=== PATIENT | female | born 1980 | race African-American/Black ===

== ENCOUNTER 2024-06-09 18:39 | Emergency (ER) | payer OTHER, MEDICAID ==
[~2024-06-09] VITALS: Ht 160 cm; Wt 85.0 kg
[~2024-06-09 18:39] MED LIST: CLON0.1T; METF-370; PALI6TAB; PSYCH MED
[2024-06-09] MEDS ORDERED: PALI6TAB PO (19:10)
[2024-06-09] MEDS ORDERED: METF-489 PO (19:10)
[2024-06-09 20:21] VITALS: BP 148/86; PULSE 77; RESP 18; TEMP 97.9; O2SAT 99
[2024-06-09] MEDS: OLANZapine 5 MG TAB PO ONE (20:24)
[2024-06-09] MEDS: metFORMIN HYDROCHLORIDE 500 MG TAB PO ONE (20:24)
[2024-06-09] MEDS ORDERED: HYDR-3682 PO (20:41)
[2024-06-09] MEDS ORDERED: TOPI25TA84 PO (20:41)
== END 2024-06-09 20:51 | disposition home or self-care (01) ==
LOC: EDBD 18:39 → ER 18:39 → EDUNIT# 18:39 → ER 20:51
DX: F20.9 Schizophrenia, unspecified (principal); E11.9 Type 2 diabetes mellitus without complications; I10 Essential (primary) hypertension

== ENCOUNTER 2024-08-31 09:35 | Emergency (ER) | payer MEDICAID, OTHER ==
[~2024-08-31] VITALS: Ht 157.5 cm; Wt 87.2 kg
[~2024-08-31 09:35] MED LIST changes: +HYDR-3682 PO; +METF-489 PO; +PALI6TAB PO; +TOPI25TA84 PO
[2024-08-31 11:15] VITALS: BP 124/70; PULSE 77; RESP 20; TEMP 98.2; O2SAT 100
--- NOTE | 2024-08-31 12:01 | ED.PDOC ---
Musculoskeletal HPI Comments A 44 YEAR OLD FEMALE PRESENTS TO THE ED WITH COMPLAINT OF BILATERAL KNEE PAIN. PATIENT STATES SHE ACCIDENTALLY TWISTED HER RIGHT LEG CAUSING HER TO FALL AND HIT HER BILATERAL KNEES ON THE GROUND 1 WEEK AGO. PATIENT REPORTS SHE IS NOW EXPERIENCING BILATERAL KNEE PAIN. PATIENT IS ABLE TO WALK AND BEAR WEIGHT WITH A STABLE GAIT. PATIENT IS ALSO REQUESTING A TEST SHE NOTES SHE MISSED HER MENSTRUAL PERIOD RECENTLY. PATIENT DENIES HEAD INJURY, NECK INJURY, LOC, FEVER, CHILLS, SHORTNESS OF BREATH, CHEST PAIN, ABDOMINAL PAIN, NAUSEA, VOMITING, HEADACHE, OR OTHER COMPLAINTS. NO OTHER SYMPTOMS OR MODIFYING FACTORS AT THIS TIME. PATIENT IS ALERT, ORIENTED X 4, AND HAS STEADY GAIT. Chief Complaint: Lower Extremity Time Seen by MD: 10:02 Primary Care Provider: RACHAEL Reviewed Notes: Nurses Notes, Medications, Allergies Allergies: Coded Allergies: NO KNOWN ALLERGIES (Unverified , 08/28/11) Home Meds Active Scripts Ibuprofen (Ibuprofen) 800 Mg Tab, 1 TAB PO TID, #30 TAB Prov:SENA CHOI 08/31/24 Hydroxyzine Hcl (Hydroxyzine Hcl) 25 Mg Tab, 1 TAB PO TID, #90 TAB 2 Refills Prov:APOLINAR ORELLANA MD 06/09/24 Topiramate (Topiramate) 25 Mg Tab, 1 TAB PO TID, #90 TAB 1 Refill Prov:APOLINAR ORELLANA MD 06/09/24 Paliperidone (Invega) 6 Mg Tab, 1 TAB PO DAILY, #30 TAB 2 Refills Prov:APOLINAR ORELLANA MD 06/09/24 Metformin Hydrochloride (METFORMIN HCL ER) 500 Mg Tab, 1 TAB PO DAILY, #90 TAB 1 Refill Prov:APOLINAR ORELLANA MD 06/09/24 Reported Medications Paliperidone (Invega) 6 Mg Tab 08/28/11 [Psych Med] No Conflict Check 08/28/11 Metformin Hydrochloride (Metformin Hcl) 500 Mg Tab 08/28/11 Clonidine Hydrochloride (Clonidine Hcl) 0.1 Mg Tab 08/28/11 Information Source: Patient Mode of Arrival: Ambulatory Location: Bilateral Extremity Location: Knee Timing: Days Prehospital treatment: None Severity: Moderate Able to Move Extremity: Yes Bear Weight: Fully Pain: Moderate Mechanism: Twisting Circumstances: Fall Onset of Symptoms: After Trauma Symptoms: Pain DVT Risk Factors: NONE Last Tetanus: Unknown Associated signs and symptoms: Knee pain Past Medical History PAST MEDICAL HISTORY: DM, HTN, Schizophrenia Surgical History: Denies all surgeries [employer] RO[employer] 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 History Family History Family History: No family hx of DM, No family hx of HTN Social History Smoker: Non-Smoker Alcohol: Denies ETOH Use Drugs: Denies Drug Use Lives In: Home Constitutional: denies: chills, diaphoresis, fatigue, fever, malaise, sweats, weakness, others EENTM: denies: blurred vision, double vision, ear bleeding, ear discharge, ear drainage, ear pain, ear ringing, eye pain, eye redness, hearing loss, mouth pain, mouth swelling, nasal discharge, nose bleeding, nose congestion, nose pain, photophobia, tearing, throat pain, throat swelling, voice changes, others Respiratory: denies: cough, hemoptysis, orthopnea, SOB at rest, shortness of breath, SOB with excertion, stridor, wheezing, others Cardiovascular: denies: chest pain, dizzy spells, diaphoresis, Dyspnea on exertion, edema, irregular heart beat, left arm pain, lightheadedness, palpitations, PND, syncope, others Gastrointestinal: denies: abdomen distended, abdominal pain, blood streaked bowels, constipated, diarrhea, dysphagia, difficulty swallowing, hematemesis, melena, nausea, poor appetite, poor fluid intake, rectal bleeding, rectal pain, vomiting, others Genitourinary: denies: abnormal vagina bleeding, burning, dyspareunia, dysuria, flank pain, frequency, hematuria, incontinence, pain, , vagina discharge, urgency, others Neurological: denies: dizziness, fainting, headache, left sided numbness, left sided weakness, numbness, paresthesia, pre-existing deficit, right sided numbness, right sided weakness, seizure, speech problems, tingling, tremors, weakness, others Musculoskeletal: reports: joint pain, others (BILATERAL KNEE PAIN); denies: back pain, gout, joint swelling, muscle pain, muscle stiffness, neck pain Integumetry: denies: bruises, change in color, change in hair/nails, dryness, laceration, lesions, lumps, rash, wounds, others Allergic/Immunocompromised: denies: Difficulty Healing, Frequent Infections, Hives, Itching, others Hematologic/Lymphatic: denies: anemia, blood clots, easy bleeding, easy bruising, swollen glands, others Endocrine: denies: excessive hunger, excessive sweating, excessive thirst, excessive urination, flushing, intolerance to cold, intolerance to heat, unexplained weight gain, unexplained weight loss, others Psychiatric: denies: anxiety, bipolar disorder, depression, hopeless, panic disorder, schizophrenia, sleepless, suicidal, others All Other Systems: Reviewed and Negative Physical Exam General Appearance: No Apparent Distress, Normal HEENT: Normal ENT Inspection, PERRL/EOMI, Pharynx Normal, TMs Normal Neck: Full Range of Motion, Non-Tender, Normal, Normal Inspection Respiratory: Chest Non-Tender, Lungs Clear, No Accessory Muscle Use, No Respiratory Distress, Normal Breath Sounds Cardiovascular: No Edema, No JVD, No Murmur, No Gallop, Normal Peripheral Pulses, Regular Rate/Rhythm Breast Exam: Deferred Gastrointestinal: No Organomegaly, Non Tender, No Pulsatile Mass, Normal Bowel Sounds, Soft Genitalia: Deferred Pelvic: Deferred Rectal: Deferred Extremities: No calf tenderness, Normal capillary refill, Normal inspection, Normal range of motion, No pedal edema, Tender (BILATERAL KNEE, NO BONY TENDERNESS, SWELLING AND DEFORMITY. NORMAL ROM. ) Musculoskeletal : Apperance: Normal Neurologic: Alert, bread wrapper II-XII nml as Tested, No Motor Deficits, Normal Affect, Normal Mood, No Sensory Deficits Cerebellar Function: Normal Reflexes: Normal Skin: Dry, Normal Color, Warm Peripheral Pulses: 2+ carotid (R), 2+ carotid (L), 2+ dorsalis pedis (R), 2+ dorsalis pedis (L) Lymphatic: No Adenopathy Was a procedure done? Was a procedure done?: No Differential Diagnosis EXT Differential Diagnosis: Fracture, Sprain, Dislocation, Contusion, Strain, Bursitis X-Ray, Labs, Meds, VS Vital Signs Date Time Temp Pulse Resp B/P (MAP) Pulse Ox O2 Delivery O2 Flow Rate FiO2 08/31/24 11:15 98.2 77 20 124/70 (88) 100 98.2 08/31/24 11:15 77 20 100 Room Air 08/31/24 09:54 98.2 77 20 124/70 (88) 100 Lab Test 08/31/24 11:21 Range/Units Urine Test Negative Negative X-Ray, Labs, Meds, VS Comment EXTERNAL MEDICAL RECORDS REVIEWED: [NONE] INDEPENDENT HISTORIANS: [NONE] SOCIAL DETERMINANTS OF HEALTH: [NONE] LABS ORDERED: URINE REVIEWED AND INTERPRETED RESULTS: NEGATIVE IMAGING ORDERED: XR KNEE BILATERAL: [INTERPRETED BY ME. NO ACUTE FINDINGS. NO FRACTURES OR DISLO CATION. PENDING RADIOLOGIST REPORT.] TREATMENTS ORDERED: NONE PROCEDURES PERFORMED: NONE CRITICAL CARE TIME: NONE I HAVE DISCUSSED THE PATIENT WITH THE ATTENDING PHYSICIAN DR. HERNANDEZ AND HE AGREES WITH THE PATIENT'S PLAN OF CARE AND DISPOSITION. BASED ON HISTORY OF PRESENT ILLNESS, AND PHYSICAL EXAM, PATIENT WILL BE DISCHARGED HOME. DISCUSSED PLAN FOR DISCHARGE HOME WITH RX [IBUPROFEN 800MG]. MEDICATION WARNINGS GIVEN. SHARED DECISION MAKING: PATIENT INSTRUCTED TO FOLLOW UP WITH PRIMARY CARE PROVIDER IN 1-2 DAYS FOR RE-EVALUATION OF SYMPTOMS. PATIENT VERBALIZES UNDERSTANDING TO RETURN TO ED FOR NEW OR WORSENING SYMPTOMS OR IF FOLLOW UP WITH PCP CANNOT BE OBTAINED. PATIENT FEELS COMFORTABLE GOING HOME AT THIS TIME. ALL QUESTIONS ADDRESSED AT TIME OF DISCHARGE. Images Reviewed?: Images reviewed and evaluated by me Time of 1ST Reevaluation: 12:51 Reevaluation 1ST: Improved Patient Education/Counseling: Diagnosis, Treatment, Need For Follow Up Family Education/Counseling: Diagnosis, Treatment, Need For Follow Up Medical Screening: No EMC Exist At This Time Departure 1 Departure Time of Disposition: 13:00 Impression: Primary Impression: Sprain of both knees Additional Impression: Status post fall Disposition: 01 HOME / SELF CARE / HOMELESS Condition: Stable Additional Instructions: FOLLOW-UP WITH PCP IN 1 TO 2 DAYS. TAKE MEDICATIONS PRESCRIBED. RETURN TO ED FOR ANY NEW OR WORSENING SYMPTOMS. e-Prescriptions Ibuprofen (Ibuprofen) 800 Mg Tab 1 TAB PO TID, #30 TAB Prov: SENA CHOI 08/31/24 Discharged With: Self Critical Care Note Critical Care Time?: No Stability Stability form required: No I personally scribed for SENA CHOI ([email or web address]) on 08/31/24 at 12:01. Electronically submitted by Jose Simons ([email or web address]). I personally scribed for SENA CHOI ([email or web address]) on 08/31/24 at 12:48. Electronically submitted by Jose Simons ([email or web address]). SENA CHOI Aug 31, 2024 12:01
[2024-08-31] MEDS ORDERED: IBUP-1456 PO (12:48)
--- NOTE | 2024-08-31 12:49 | DVH ---
CLINICAL INDICATION: PAIN, NO INJURY TECHNIQUE: 2 radiographic views of the right knee were obtained. Comparison: None FINDINGS/IMPRESSION: There is no evidence of acute fracture or dislocation. The visualized joint space is well maintained. The alignment is anatomical. There is no radiopaque foreign body.
--- NOTE | 2024-08-31 12:51 | DVH ---
CLINICAL INDICATION: PAIN AND POP SENSATION PER PT TECHNIQUE: 2 radiographic views of the left knee were obtained. Comparison: None FINDINGS/IMPRESSION: There is no evidence of acute fracture or dislocation. The visualized joint space is well maintained. The alignment is anatomical. There is no radiopaque foreign body.
== END 2024-08-31 12:56 | disposition home or self-care (01) ==
LOC: ER 09:35
DX: S83.91XA Sprain of unspecified site of right knee, initial encounter (principal); S83.92XA Sprain of unspecified site of left knee, initial encounter; I10 Essential (primary) hypertension; E11.9 Type 2 diabetes mellitus without complications; F20.9 Schizophrenia, unspecified; Z79.1 Long term (current) use of non-steroidal anti-inflammatories (NSAID); Z79.84 Long term (current) use of oral hypoglycemic drugs; Z79.899 Other long term (current) drug therapy; W18.39XA Other fall on same level, initial encounter; Y93.89 Activity, other specified; Y92.89 Other specified places as the place of occurrence of the external cause; Y99.8 Other external cause status
CPT/HCPCS: 73560; 81025